=== PATIENT | male | born 1995 | race Caucasian/White ===

== ENCOUNTER 2017-10-24 16:24 | Observation (INO) | payer OTHER ==
[2017-10-24] VITALS (7 sets, daily range): BP systolic 132–145; BP diastolic 76–87; PULSE 72–96; TEMP 97.6–98.5
[~2017-10-24] VITALS: Ht 180.3 cm; Wt 114.3 kg
[2017-10-25] VITALS (12 sets, daily range): BP systolic 118–149; BP diastolic 73–85; PULSE 54–94; TEMP 97.8–98.7
== END 2017-10-25 17:25 | disposition home or self-care (01) ==
LOC: SURG 16:24
DX: N20.1 Calculus of ureter (principal); Z87.442 Personal history of urinary calculi
CPT/HCPCS: C1769; C2617; J0690; J1100; J1885; J2250; J2270; J2405; J2704; J2765; J3010; J7030; J7120; Q9967